=== PATIENT | male | born 1995 | race Hispanic/Latino ===

== ENCOUNTER 2018-10-10 18:57 | Emergency (ER) | payer OTHER ==
[2018-10-10 19:13] VITALS: BP 114/74
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
[2018-10-10] MEDS ORDERED: IBUPROFEN PO ONE (20:39)
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
== END 2018-10-10 22:08 | disposition home or self-care (01) ==
LOC: ED 18:57
DX: R07.81 Pleurodynia (principal); M25.551 Pain in right hip; M25.511 Pain in right shoulder; Z88.0 Allergy status to penicillin; V89.2XXA Person injured in unspecified motor-vehicle accident, traffic, initial encounter; Y93.89 Activity, other specified; Y92.488 Other paved roadways as the place of occurrence of the external cause; Y99.8 Other external cause status
CPT/HCPCS: 99283